=== PATIENT | female | born 1950 | race Caucasian/White ===

== ENCOUNTER 2023-10-13 19:17 | Emergency (ER) | payer MEDICARE, SELFPAY ==
[2023-10-13 19:24] VITALS: BP 160/93; PULSE 88; RESP 14; TEMP 36.1; O2SAT 95
--- NOTE | 2023-10-13 20:52 | PC.NURSE ---
patient to desk and stated she was going home. patient states she had BM. advised to come back to ER if symptoms get worse.
== END 2023-10-13 21:57 | disposition left against medical advice (07) ==
LOC: ANHED 21:02
PROVIDERS: PCP Pediatrics
DX: K59.00 Constipation, unspecified (principal)
CPT/HCPCS: 99199